=== PATIENT | male | born 1965 | race African-American/Black ===

== ENCOUNTER 2016-06-14 16:24 | Emergency (ER) | payer SELFPAY ==
--- NOTE | 2016-06-14 16:32 | ED Physician Documentation ---
General Adult - HISTORIAN Historian: patient, other (law enforcement) - HPI Stated Complaint: eval for ETOH intoxication Chief Complaint: General Adult Onset: hours Further Comments: yes (Pt is a 51 yo aa male brought to ER by law enforcement for ETOH level. Pt declines medical exam. Pt has hx HTN, but does not recall name of his meds.) - ROS CONST: other (pt declines exam and has no specific complaints) EYES/ENT: none CVS/RESP: none GI/: none MS/SKIN/LYMPH: none - PAST HX Past History: hypertension Allergies/Adverse Reactions: Allergies Allergy/AdvReac Type Severity Reaction Status Date / Time No Known Allergies Allergy Verified 06/14/16 16:51 Home Medications: Ambulatory Orders Medication Instructions Recorded NK [NK] 06/14/16 - SOCIAL HX Smoking History: other (smoking hx unknown) Alcohol Use: other (here for DWI eval) - FAMILY HX Family History: No - REVIEWED ASSESSMENTS Nursing Assessment Reviewed: Yes Vitals Reviewed: Yes Progress - Progress Progress: Pt declines exam. Blood sample obtained for ETOH level for law enforcement. General Adult Physical Exam - PHYSICAL EXAM GENERAL APPEARANCE: mild aggitation, declines exam NECK: normal inspection, supple RESPIRATORY: no resp distress BACK: normal inspection SKIN: normal color EXTREMITIES: normal range of motion NEURO: other (possible ETOH intoxication) Discharge Clincal Impression: ETOH evaluation Referrals: Primary Doctor,No [Primary Care Provider] - Home Medications: Ambulatory Orders NK [NK] 06/14/16 Condition: Stable Disposition: 01 HOME, SELF-CARE Decision to Admit: NO Decision Time: 16:40
[2016-06-14 16:50] VITALS: BP 139/104
== END 2016-06-14 16:36 | disposition home or self-care (01) ==
LOC: ED 16:24
DX: Z02.83 Encounter for blood-alcohol and blood-drug test (principal)
CPT/HCPCS: 99282